=== PATIENT | male | born 1985 | race Caucasian/White ===

== ENCOUNTER 2021-05-11 10:29 | Emergency (ER) | payer BC, OTHER ==
[~2021-05-11] VITALS: Ht 177.8 cm; Wt 79.4 kg
[2021-05-11 10:52] VITALS: BP 137/72
[2021-05-11] MEDS ORDERED: KETOROLAC TROMETH 60MG/2ML VIAL IM ONE (11:30)
== END 2021-05-11 11:48 | disposition home or self-care (01) ==
LOC: ER 10:29
DX: S30.0XXA Contusion of lower back and pelvis, initial encounter (principal); S39.012A Strain of muscle, fascia and tendon of lower back, initial encounter; F12.10 Cannabis abuse, uncomplicated; X58.XXXA Exposure to other specified factors, initial encounter; Y93.89 Activity, other specified; Y92.89 Other specified places as the place of occurrence of the external cause; Y99.8 Other external cause status
CPT/HCPCS: 72100; 96372; 99283; J1885